=== PATIENT | female | born 1965 | race Caucasian/White ===

== ENCOUNTER 2024-11-23 11:15 | Emergency (ER) | payer BC, SELFPAY ==
[2024-11-23 11:18] VITALS: BP 189/98; PULSE 62; O2SAT 96
[2024-11-23 11:21] VITALS: BP 139/63; PULSE 72; RESP 18; TEMP 36.1; O2SAT 97; BMI 23.3
[2024-11-23 11:34] VITALS: BP 139/63; PULSE 72; RESP 18; TEMP 36.1; O2SAT 97
--- NOTE | 2024-11-23 11:36 | PC.NURSE ---
58 F presents to ED with rash/itching in bilat arms after possible bee sting or exposure to aloe spray that was given to her dog. A+OX4, calm, cooperative. RR even and unlabored. Pt denies any CP or SOB. Pt is ambulatory, airway clear. medicated per APR.
--- NOTE | 2024-11-23 11:44 | ED.ALLEREA ---
HPI - Allergic Reaction General Chief complaint: Allergic Reaction Stated complaint: itchy, ?bee sting hx allergy Time Seen by Provider: 11/23/24 11:19 History of Present Illness ED Provider: Anderson Rosas MD HPI narrative: 50-year-old female who presents after possible exposure to spray she put on her dog or concern for possible exposure to be staying of which she has had anaphylaxis. She believes her dog was stung by bee just prior to arrival and subsequent to that spray was applied to him. Subsequently she became itchy diffusely. She did not take any medication Related Data Previous Rx's ?Medication ?Instructions ?Recorded epinephrine 0.3 mg/0.3 mL 0.3 mg (0.3 mL) IM Q10M PRN 11/23/24 injection, auto-injector (EpiPen anaphylaxis #2 ea 2-Shant) Allergies Allergy/AdvReac Type Severity Reaction Status Date / Time bee pollen (bee stings) Allergy Anaphylaxis Verified 11/23/24 11:28 ketorolac (From Toradol) AdvReac Rash Verified 11/23/24 11:30 [facility] Social History Social History Smoked in Last 30 Days: No Use of substances other than those prescribed or required for medical reasons: No Advance Directives: No Advance Directives Information Provided: Yes Do you have a plan to hurt others: No Plan Patient : No Physical Exam ED Exam Exam: EXAM: Gen: Alert, awake, well appearing, well hydrated. Head: Atraumatic Eyes: Anicteric, Normal conjunctiva. ENT: Moist mucosa, no pallor. ? Neck: Supple. Skin: ?No observable rash or bruising on exposed or examined skin Respiratory: Breathing comfortably, No distress.Clear to auscultation bilaterally, symmetric chest expansion, No wheeze, rales, ronchi. Cardiovascular: Regular rate and rhythm. No murmurs or rub. Well perfused periphery, warm extremities. No edema. ? Abdominal: No focal tenderness. Soft, no objective distension. No palpable masses or obvious organomegaly. ?No guarding, no rebound tenderness or other peritoneal findings. : No flank tenderness. Neuro: Alert. Gross movement of all extremities intact. ? Psych: Calm. Cooperative. MSK: No grossly visible deformity. Vital signs: See flowsheet Vital Signs: Vital Signs - 24 hr 11/23/24 11:21 11/23/24 11:34 11/23/24 12:11 Temperature 97 F 97 F 97 F Pulse Rate 72 72 72 Respiratory Rate 18 18 18 Blood Pressure 139/63 139/63 139/63 Pulse Oximetry 97 97 97 Oxygen Delivery Method Room Air Room Air Room Air BMI result Body Mass Index 23.3 Medications Administered Discontinued Medications Generic Name Dose Route Start Last Admin Trade Name Freq PRN Reason Stop Dose Admin Diphenhydramine HCl 25 mg 11/23/24 11:20 11/23/24 11:33 Diphenhydramine Hcl 25 Mg Capsule PO 11/23/24 11:21 25 mg ONCE ONE Administration Famotidine 20 mg 11/23/24 11:20 11/23/24 11:33 Famotidine 20 Mg Tablet PO 11/23/24 11:21 20 mg ONCE ONE Administration Prednisone 60 mg 11/23/24 11:20 11/23/24 11:33 Prednisone 20 Mg Tablet PO 11/23/24 11:21 60 mg ONCE ONE Administration Medical Decision Making Medical Decision Making MDM Narrative: Medical Decision Makin-year-old female with a history of bee sting anaphylaxis, received 25 mg Benadryl for diffuse itching possible be and/or topical allergen exposure from the spray she provided to her dog just prior to arrival. No subjective or objective airway involvement. Preliminary Favored Differential Diagnosis: Allergic reaction, no evidence of anaphylaxis though this was considered, among additional considered etiologies Testing Interpreted Independently: ?See below for details Radiology or Lab testing Results Reviewed: ?See below for details Consults: ?See below for details Independent Historians/External Chart Reviews: ?See below for details Social Determinants of Health Impacting MDM/Planning: ?See below for details Discharge Plan Discharge Clinical Impression: Allergic reaction Patient Disposition: Home, Self-Care Instructions: General Allergic Reaction (ED) Additional Instructions: You were evaluated for body wide itching that likely was a mild allergic reaction. In the emergency department you received 25 mg of Benadryl, 60 mg prednisone and 20 mg famotidine. We are refilling your EpiPen. Prescriptions: New epinephrine [EpiPen 2-Shant] 0.3 mg/0.3 mL auto-injector 0.3 mg IM Q10M PRN (Reason: anaphylaxis) Qty: 2 0RF Rx Instructions: for 2 doses Interventions: ED Discharge Assessment Last Done: 11/23/24 12:11 Discharge Date/Time: 11/23/24 12:11 Print Language: Jamaican
[2024-11-23 12:11] VITALS: BP 139/63; PULSE 72; RESP 18; TEMP 36.1; O2SAT 97
--- OUTSIDE RECORDS SUMMARY | 2024-11-23 13:16 | XMS_ITS | Encounter Summary ---
Author Organization [facility] Address [address] [place] [address] Care Team Providers Care Quarry Plug And Feather Driller Name Role Phone Duane Plasencia MD Primary Care Provider [phone] Reason for Visit * Reason Onset Date Comments MED REFILL 11/18/2024 Encounter Details Date Type Department Care Team (Late st Contact Info) Description 11/18/2024 Telephone Gastroenterology - [address] [place] [phone] Sara Novak MD [address] [place] [address] Social History Tobacco Use Types Packs/Day Years Used Date Smoking Tobacco: Former Cigarettes Q uit: 02/24/1994 Alcohol Use Standard Drinks/Week Comments Not Asked 0 (1 standard drink = 0.6 oz pur e alcohol) Comments No Sex and Gender Information Value Date Recorded Sex Assigned at Female 03/05/2024 11:44 AM EST Legal Sex Female 10:32 AM EST Gender Identity Female 03/05/2024 11:44 AM EST Sexual Orientation Straight 03/05/2024 11 :44 AM EST documented as of this encounter Progress Notes * Quin Lee MA - 11/18/2024 2:38 PM EDT Last filled by Tigist Muñoz NP on 01/27/24 Ny Amirah, Are you willing to provide refill until patient is seen by Soledad in April? Please pend RX to pharmacy as you feel appropriate. Please let me know if there is any additional information you need fromme. Thanks so much! * Zenaida Chan - 11/18/2024 2:12 PM EDT FAITH : 02/04/2024 NOV : 04/25/2025 Medication : ondansetron hcl Dose : 4 mg tablet Q 12H day supply : 90 Prescriber : marixa aragon Pharmacy : on file Is patient out of medication? : received fax PLEASE NOTE MED REFILLS CAN TAKE UP TO 72 HOURS TO FILL documented in this encounter Plan of Treatment Upcoming Encounters Date Type Department Care Team (Late st Contact Info) Description 04/25/2025 1:40 PM EST Office Visit Gastroenterology - [address] [place] [phone] Soledad Mg NP [address] [facility] [address] [place] [address] documented as of this encounter Visit Diagnoses Not on filedocumented in this encounter Care Teams Quarry Plug And Feather Driller Relationship Specialty Start Date End Date Duane Plasencia MD [address] [place] [phone] PCP - General 07/20/22 documented as of this encounter
--- OUTSIDE RECORDS SUMMARY | 2024-11-23 13:16 | XMS_ITS | Clinical Summary ---
Author Organization [facility] [address] [facility] Address [address] [place] [address] Phone Care Team Providers Care Warehouse And Receiving Supervisor Name Role Phone Duane Plasencia MD Primary Care Provider [phone] Allergies No known active allergies Medications sertraline (Zoloft) 100 mg tablet 1 TABLET DAILY 05/17/2008 Active isomethept/dichl phn/acetaminop (MIDRIN ORAL) MIDRIN 325-65-100 MG OR CAPS 1 CAP tid PRN Pain 05/10/2008 Active gabapentin (GRALISE) 300 mg 24 hr tablet 1 po qhs for 6 days then 1 po bid for 6 days then 1 po tid 05/10/2008 Active hydrocodone/acet aminophen (VICODIN ORAL) VICODIN 5-500 MG OR TABS 1 TABLET EVERY 4 TO 6 HOURS NEEDED 03/23/2008 Active promethazine (PHENERGAN) 12.5 mg tablet 1 TABLET q 8 hrs for nausea NEEDED 02/22/2008 Active cholestyramine (Questran) 4 gram packet 1 PACKET ONCE DAILY 11/02/2007 Active methocarbamoL (ROBAXIN) 750 mg tablet 1 TABLET PO Q4H PRN 03/01/2007 Active estradioL (Vivelle-Dot) 0.1 mg/24 hr 1 PATCH TWICE WEEKLY Active multivitamin (MULTIPLE VITAMINS ORAL) 1 DAILY Activ e dicyclomine (BENTYL) 20 mg tabletIndication s:Irritable bowel syndrome, unspecified type Take 1 tablet (20 mg total) by mouth 4 (four) times a day (before meals and nightly). 120 tablet 11 02/26/2024 02/25/19 26 Active dicyclomine (BENTYL) 20 mg tabletIndication s:Irritable bowel syndrome, unspecified type,Gastroesoph ageal reflux disease, unspecified whether esophagitis present Take 1 tablet (20 mg total) by mouth 4 (four) times a day (before meals and nightly). 360 each 3 03/29/2024 03/29/19 26 Active omeprazole OTC (PriLOSEC OTC) 20 mg EC tabletIndication s:Irritable bowel syndrome, unspecified type,Gastroesoph ageal reflux disease, unspecified whether esophagitis present Take 1 tablet (20 mg total) by mouth 1 (one) time each day. Do not crush, chew, or split. 90 tablet 3 03/29/2024 03/29/19 26 Active omeprazole (PriLOSEC) [address] capsule Take 1 capsule (20 mg total) by mouth 1 (one) time each day. Do not crush or chew. 90 each 3 03/30/2024 03/30/19 26 Active ondansetron (ZOFRAN) 4 mg tabletIndication s:Gastroesophage al reflux disease, unspecified whether esophagitis present,Nausea Take 1 tablet (4 mg total) by mouth every 8 (eight) hours if needed for nausea or vomiting. 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 IMO update Encounters Date Type Department Care Team Description 11/18/2024 Telephone Gastroenterology - [address] [place] [address] Sara Novak MD from Last 3 Months Immunizations Immunization Administration Dates Next Due Pneumococcal polysaccharide 23 valent (Pneumovax 23) 2yo and older 12/29/2003 Td Tetanus diptheria (Tdvax) 7yo and older 12/28 Surgical History Surgery Date Site/Laterality Comments CHOLECYSTECTOMY 1996 PROCEDURE: HISTORICAL CHOLECYSTECTOMY APPENDECTOMY PROCEDURE: HISTORICAL APPENDECTOMY OTHER SURGICAL HISTORY PROCEDURE: MN COLECTOMY PRTL ABDOMINAL & TRANSANAL APPROACH; COMMENT: 4 surgeries OTHER SURGICAL HISTORY 10/14/2006 PROCEDURE: MN TOTAL ABDOMINAL HYSTERECT W/WO RMVL TUBE OVARY; COMMENT: No evidence active Crohns COLONOSCOPY 04/23/2006 PROCEDURE: MN COLONOSCOPY FLX DX W/COLLJ SPEC WHEN PFRMD; COMMENT: Normal ([place]le[place], PVSC) HYSTERECTOMY Medical History Medical History Date Comments Regional enteritis of unspecified site DX:Regional enteritis of unspecified site Abdominal pain, generalized 08/02/2005 DX:A bdominal pain, generalized; COMMENT: Secondary to Chrons disease Herpes simplex without menti on of complication 08/02/2005 DX:Herpes simplex without me ntion of complication; COMMENT: Type II Family History Medical History Relation Name Comments Diabetes Father Other: Coronary stent Mother Relation Name Status Comments Brother Alive Father Mother Sister 1 Alive Sister 2 Alive Social History Tobacco Use Types Packs/Day Years [...] Orientation Straight 03/05/2024 11 :44 AM EST Obstetrics History Para Term AB IAB SAB Ectopic Multiple Livin g Live Births 1 Last Filed Vital Signs Vital Sign Reading Time Taken Comments Blood Pressure - - Pulse - - Temperature - - Respiratory Rate - - Oxygen Saturation - - Inhaled Oxygen Concentration - - Weight 63.5 kg (140 lb) 03/10/2024 4:26 PM EST Height 170.2 cm (5' 7 ) 03/10/2024 4:26 PM EST Body Mass Index 21.93 03/10/2024 4:26 PM EST Plan of Treatment Upcoming Encounters Date Type Department Care Team (Late st Contact Info) Description 04/25/2025 1:40 PM EST Office Visit Gastroenterology - [place] [address] [facility] [address] [place] [phone] Soledad Mg, JULIA [address] [facility] [address] [place] [address] Health Maintenance Due Date Last Done Comments Hepatitis B Vaccines (1 of 3 - 19+ 3-dose series) 1984 Cervical Cancer Screening: Pap Smear 1986 DTaP,Tdap,and Td Vaccines (2 - Td or Tdap) 12/28/2013 12/29/2003 Pneumococcal Vaccine: 50+ Years (2 of 2 - PCV) 05/07/2018 05/07/2017, 12/29/2003 HIV Screening 01/28/2022 Hepatitis C Screening 01/28/2022 Social Influencers of Health Screening 01/28/2022 Depression Screening 02/25/2024 COVID-19 Vaccine ( season) 2024 12/31/2020, 06/17/2020, 05/27/2020 Influenza Vaccine (#1) 2024 , 11/26/2022, 01/02/2022, Additional history exists Breast Cancer Screening 03/10/2026 03/10/19 25, 07/15/2022, 07/12/2021, Additional history exists Colorectal Cancer Screening: Colonoscopy 05/19/2028 05/19/2018 Osteoporosis Screening (Bone Density Screening) 07/15/2032 07/15/2022, 04/06/2018 RSV Immunization Adult Patients (1 - 1-dose 75+ series) 2040 Zoster Vaccines Completed 01/08/2024, 10/18/2023 HIB Vaccines Aged Out No longer eligi ble based on patient's age to complete this topic HPV Vaccines Aged Out No longer eligi ble based on patient's age to complete this topic Hepatitis A Vaccines Aged Out No long er eligible based on patient's age to complete this topic IPV Vaccines Aged Out No longer eligi ble based on patient's age to complete this topic MMR Vaccines Aged Out No longer eligi ble based on patient's age to complete this topic Meningococcal ACWY Vaccine Aged Out N o longer eligible based on patient's age to complete this topic Meningococcal B Vaccine Aged Out No l onger eligible based on patient's age to complete this topic RSV Immunization Patients Under 20 months Aged Out No longer eligible based on patient's age to complete this topic Varicella Vaccines Aged Out No longer eligible based on patient's age to complete this topic Procedures Procedure Name Priority Date/Time Associated Diagnosis Comments EXTERNAL ENDOSCOPY REPORT Routine 09/30/2024 8:59 AM EDT MG MAMMO DIGITAL SCREENING W CHRISTIAN BILAT Routine 03/10/2024 4:33 PM EST Encounter for screening mammogram for breast cancer PRICILA DEXA AXIAL SKELETON Routine 07/15/2022 10:57 AM EDT Age-related osteoporosis without current pathological fracture EXTERNAL COLONOSCOPY REPORT Routine 05/19/2018 9:02 AM EDT from Last 3 Months or Most Recently Relevant to Health Maintenance Results * External Endoscopy (09/30/2024 8:59 AM EDT) Anatomical Region Laterality Modality Endoscopy us Historical Provider GI~PROCEDURE ORDERABLES F inal Result * MG Mammo Digital Screening w Christian bilat (03/10/2024 4:33 PM EST) Anatomical Region Laterality Modality Breast Bilateral Mammography 03/11/2024 7:49 AM EST Impressions 03/11/2024 7:56 AM EST No mammographic evidence of malignancy. No suspicious interval change. A negative mammogram in the presence of a clinically suspicious palpable abnormality does not preclude the possibility of malignancy or alter the indications for biopsy. ASSESSMENT: BI-RADS 1: NEGATIVE RECOMMENDATION(S): 1: Routine screening mammogram BILATERAL in 1 year. -------- FINAL REPORT -------- Dictated By: Live Williamson Dictated Date: 03/11/2024 07:49 ET Assigned Physician: Live Williamson Reviewed and Electronically Signed By: Live Williamson Signed Date: 03/11/2024 07:56 ET Workstation ID: [id number] Transcribed By: Self Edit Transcribed Date: 03/11/2024 07:49 ET Narrative 03/11/2024 7:56 AM EST EXAM: SCREENING MAMMOGRAPHY, BILATERAL HISTORY: SCREENING. No additional history. COMPARISON: 07/15/2022, 07/11/2021, 03/28/2020 TECHNIQUE: Synthesized CC and MLO projections of each breast. Tomosynthesis of each breast in the CC and MLO projections. ADDITIONAL IMAGING: None Computer-aided detection was employed with the Declara AI 3-D. TISSUE DENSITY: The breasts are heterogeneously dense, which may obscure small masses. (BI-RADS category C) FINDINGS: RIGHT BREAST: No suspicious mass. No suspicious calcification. No distortion. No additional suspicious right breast findings LEFT BREAST: No suspicious mass. No suspicious calcification. No distortion. No additional suspicious left breast findings Procedure Note Live Williamson MD - 03/11/2024 EXAM: SCREENING MAMMOGRAPHY, BILATERAL HISTORY: SCREENING. No additional history. COMPARISON: 07/15/2022, 07/11/2021, 03/28/2020 TECHNIQUE: Synthesized CC and MLO projections of each breast.Tomosynthesis of each breast in the CC and MLO projections. ADDITIONAL IMAGING: None Computer-aided detection was employed with the Declara AI 3-D. TISSUE DENSITY: The breasts are heterogeneously dense, which may obscuresmall masses. (BI-RADS category C) FINDINGS: RIGHT BREAST: No suspicious mass. No suspicious calcification. No distortion. Noadditional suspicious right breast findings LEFT BREAST: No suspicious mass. No suspicious calcification. No distortion. Noadditional suspicious left breast findings IMPRESSION: No mammographic evidence of malignancy. No suspicious interval change. A negative mammogram in the presence of a clinically suspicious palpableabnormality does not preclude the possibility of malignancy or alter theindications for biopsy. ASSESSMENT: BI-RADS 1: NEGATIVE RECOMMENDATION(S): 1: Routine screening mammogram BILATERAL in 1 year. -------- FINAL REPORT -------- Dictated By: Live Williamson Dictated Date: 03/11/2024 07:49 ET Assigned Physician: Live Williamson Reviewed and Electronically Signed By: Live Williamson Signed Date: 03/11/2024 07:56 ET Workstation ID: [id number] Transcribed By: Self Edit Transcribed Date: 03/11/2024 07:49 ET us Self Referral Sppl IMG BI PROCEDURES Final Resul t * PRICILA DEXA AXIAL SKELETON (07/15/2022 10:57 AM EDT) Anatomical Region Laterality Modality Mammography 07/15/2022 10:0 0 AM EDT Narrative 07/15/2022 10:57 AM EDT [facility] Diagnostic Imaging Department [address] [place] [address] Patient: MARIELLA ENCISO CATHY /Age/Sex: 1965 - 56 - F Unit#: [id number] Location/Status: [facility] Mnemonic/Ordering Site: [facility] Ordering Physician: CECILIA GARRETT PA-C [facility] Dexa Axial Skeleton - 07/15/228 HISTORY: The patient is a 56-year-old postmenopausal female with clinical concern for metabolic bone disease. FINDINGS: Dual energy x-ray absorptiometry of the lumbar spine and femurs is performed. The mean bone mineral density at L1-2 is 1.036 gm/cm2 which is 89% of that of young normals and 99% of that of age matched controls. This yields a T- score of -1.1 and a Z-score of -0.1 which is diagnostic of osteopenia. The mean bone mineral density of the femurs bilaterally is 0.732 gm/cm2 which is 73% of that of young normals and 81% of that of age matched controls. This yields a T-score of -2.2 and a Z-score of -1.4 which is diagnostic of osteopenia. However, the T score of the total right femur is -2.5 which is diagnostic of osteoporosis. IMPRESSION: 1. Osteoporosis. There has been a decrease of 8.6% in bone mineral density in the lumbar spine since the prior examination of 04/03/2018. There has been a decrease of 12.5% in bone mineral density in the right femur and a decrease of 8.8% in bone mineral density in the left femur. 2. FRAX analysis yields a 10-year probability of major osteoporotic fracture of 9.1% and a 10-year probability of hip fracture of 1.6%. Code 45624 Dictating Physician: SHELBY BOTELLO MD Electronically Signed by: SHELBY BOTELLO MD Dic Date/Time: 07/15/22 1053 Sign date/Time: 07/15/22 1057 Procedure Note Shelby Botello MD - 03/28/2023 [facility] Diagnostic Imaging Department [address] [place] [address] Patient: MARIELLA ENCISO CATHY Faust/Age/Sex: 1965 - 56 - F Unit#: [id number] Location/Status: [facility] Mnemonic[facility] Ordering Physician: CECILIA GARRETT PA-C [facility] Dexa Axial Skeleton - 07/15/22 - 1048 HISTORY: The patient is a 56-year-old postmenopausal female withclinical concern for metabolic bone disease. FINDINGS: Dual energy x-ray absorptiometry of the lumbar spine and femursis performed. The mean bone mineral density at L1-2 is 1.036 gm/cm2 which is89% of that of young normals and 99% of that of age matched controls. This yieldsa T- score of -1.1 and a Z-score of -0.1 which is diagnostic of osteopenia. The mean bone mineral density of the femurs bilaterally is 0.732 gm/ln6ixzvp is 73% of that of young normals and 81% of that of age matched controls.This yields a T-score of -2.2 and a Z-score of -1.4 which is diagnostic of osteopenia. However, the T score of the total right femur is -2.5 whichis diagnostic of osteoporosis. IMPRESSION: 1. Osteoporosis. There has been a decrease of 8.6% in bone mineraldensity in the lumbar spine since the prior examination of 04/03/2018. There has ebonie decrease of 12.5% in bone mineral density in the right femur and adecrease of 8.8% in bone mineral density in the left femur. 2. FRAX analysis yields a 10-year probability of major osteoporoticfracture of 9.1% and a 10-year probability of hip fracture of 1.6%. Code 25327 Dictating Physician: SHELBY BOTELLO MD Electronically Signed by: SHELBY BOTELLO MD Dic Date/Time: 07/15/22 1053 Sign date/Time: 07/15/22 1057 Cecilia HEARD IMG BI PROCEDURES Final Result * External Colonoscopy Report (05/19/2018 9:02 AM EDT) Anatomical Region Laterality Modality Endoscopy Historical Provider GI~PROCEDURE ORDERABLES F inal Result from Last 3 Months or Most Recently Relevant to Health Maintenance Insurance * Guarantor: Mariella Enciso Account Type Relation to Patient Date of Phone Billing Address Personal/Family Self 1965 [phone] (Work) [address] [place] [address] [facility] Care Teams Warehouse And Receiving Supervisor Relationship Specialty Start Date End Date Duane Plasencia MD [address] [place] [phone] PCP - General 07/20/22
== END 2024-11-23 12:11 | disposition home or self-care (01) ==
PROVIDERS: Emergency Provider Emergency Medicine
DX: T78.49XA Other allergy, initial encounter (principal); X58.XXXA Exposure to other specified factors, initial encounter
CPT/HCPCS: 99283; 99284